=== PATIENT | female | born 1960 | race Caucasian/White ===

== ENCOUNTER → 2024-08-17 14:34 | Outpatient (REF) | payer MEDICARE, OTHER, SELFPAY | LOC: WDC 14:34 | PROVIDERS: ATTENDING PHYSICIAN Family Medicine | DX: Z12.31 Encounter for screening mammogram for malignant neoplasm of breast (principal); Z78.0 Asymptomatic menopausal state | CPT/HCPCS: 77063; 77067; 77080 ==

== ENCOUNTER → 2024-09-08 10:42 | Outpatient (REF) | payer MEDICARE, OTHER, SELFPAY | LOC: HWRAD 10:42 | DX: J18.9 Pneumonia, unspecified organism (principal) | CPT/HCPCS: 71046 ==

== ENCOUNTER 2024-09-09 16:14 | Inpatient (IN) | payer MEDICARE, OTHER, SELFPAY ==
[2024-09-09 13:13] VITALS: BP 162/88
[2024-09-09 13:49] LABS: ALT (SGPT) 278 U/L (0-35); AST (SGOT) 237 U/L (14-36); Albumin 3.9 g/dl (3.5-5.0); Alkaline Phosphatase 21 U/L (38-126); Blood Urea Nitrogen 13 mg/dl (7-17); Calcium 9.2 mg/dl (8.4-10.2); Carbon Dioxide 32 mmol/L (22-30); Chloride 102 mmol/L (98-107); Glucose 112 mg/dl (70-99); Potassium 4.1 mmol/L (3.5-5.1); Sodium 138 mmol/L (135-145); Total Bilirubin 0.4 mg/dl (0.2-1.3); Total Protein 6.7 g/dl (6.3-8.2); eGFR > 60.00
--- NOTE | 2024-09-09 13:59 | ED.GENMED ---
History of Present Illness
General
Chief Complaint: Pneumonia Symptoms
Time Seen by Provider: 09/09/24 13:59
History of Present Illness
History of Present Illness:
TIME OF INITIAL ENCOUNTER: 2 PM
HPI: 5 days ago, the patient started having a low-grade fever and then the following day 'it felt like I was hit by a ton of bricks'. She has not felt well since that time. She was diagnosed with pneumonia yesterday and started Levaquin.
EXAM:
GENERAL: Appears generally weak
HEENT: Moist oral mucosa
CARDIOVASCULAR: No murmurs, normal heart rate, regular rhythm, No chest wall tenderness
PULMONARY: No respiratory distress, breath sounds are clear on the right but has significant rales and rhonchi on the left
ABDOMEN: Soft with no peritoneal signs, no tenderness
NEUROLOGIC: Good strength all extremities, no coordination deficits
PSYCHIATRIC: Appropriate mental status, normal insight and judgement
EXTREMITIES: Nontender, no edema, moves all extremities equally
SKIN: No rash, no lesions
NUMBER AND COMPLEXITY OF PROBLEMS ADDRESSED AT THE ENCOUNTER
� Chronic conditions affecting care: Melanoma
� Acute Exacerbation and/or Progression of Chronic Illness: This is an acute problem
� Differential Diagnosis includes: Pneumonia failing outpatient management, dehydration, WILFREDO,
AMOUNT AND/OR COMPLEXITY OF DATA TO BE REVIEWED AND ANALYZED
� I performed an independent evaluation of and my interpretation is:
EKG:
CT:
X-rays: Chest x-ray personally reviewed groundglass lesions on the left lung appear to be slightly improved
Laboratory Studies: White count 4.7, hemoglobin normal, chemistries unremarkable however the transaminases are elevated in the 200s
Other:
� Review of other/old records: X-ray from yesterday suggested multifocal pneumonia on the left
� Clinical information was obtained by an independent historian: I spoke does not at bedside
� Prescriptions/Medications Considered but not given:
� Further testing considered but not performed:
RISK OF COMPLICATIONS AND/OR MORBIDITY OR MORTALITY OF PATIENT MANAGEMENT
� Social determinants of health affecting care: Lives at home
� Discussion with other providers: Hospitalist for admission
� Escalation of care including admission/observation vs risk of discharge considered: Despite 2 days of Levaquin, she continues to feel worse. She has general unwell feeling but does not describe much of a shortness of breath
kind of standpoint. I offered to consider albuterol however the patient declines. I have placed her on IV antibiotics.
ANY OTHER UPDATES:
Phy Exam
Physical Exam
Physical Exam:
See HPI
Course
Orders/Labs/Results
Orders:
Orders
09/09/24 13:27
CMP [Comprehensive Metabolic Panel] Urgent
Complete Blood Count/With Diff Urgent
Creatine Phosphokinase Urgent
Comment: ADD ON
Manual Differential Urgent
09/09/24 14:00
CR Chest - 2 Views Urgent
Comment:
Reason For Exam: pneumonia symptoms
09/09/24 14:38
0.9% Sodium Chloride 1000 ml [Nss] 1,000 ml IV BOLUS
Azithromycin 500 mg/250 ml [Zithromax Infusion] 500 mg in 250 ml IV NOW
CefTRIAXone [Rocephin] 1,000 mg IV NOW STA
09/09/24 14:45
Add On- LAB Urgent
Tests Added?: ck
09/09/24 14:46
Lactic Acid Q4H
Comment: CANCEL 2nd LACTIC ACID IF 1st LACTIC ACID IS LESS THAN 2
Blood Culture Q30M
KASSY Source: Blood/Venous
Specimen Description:
Blood Culture Q30M
KASSY Source: Blood/Venous
Specimen Description:
Influenza A+B Rapid Molecular Urgent
KASSY Source: Nasal Swab
Specimen Description:
09/09/24 15:11
Admit/Transfer Patient As Directed
Co-Sign Provider:
Level of Care: Inpatient admission
Assign to:: Medical/Surgical
Physician / Group: yesi
Diagnosis: pneumonia
Reason for Hospitalization: pneumonia
Expected length of stay greater than two midnights?: Yes
ELOS- Estimated Length of Stay in days: 2
I certify the patient meets the requirements for IP care: Yes
Code Status As Directed
Resuscitation Status: Full Code
PRN Pain Medication Management As Directed
May give lesser potent ordered pain med per pt: Yes
preference::
Protocol:: Medication orders for pain may be administered in a
manner that supports deferring to patient preference
when the pt is:
- Requesting an ordered lesser potent pain medication.
Least to most potent pain medications are defined
as: acetaminophen < NSAID < tramadol < opioids
(morphine, oxycodone, hydromorphone).
- Requesting a lesser dose of the same medication IF
ORDERED.
- Requesting a less intrusive route of administration
if both routes are prescribed by the provider (PO <
IV).
09/09/24 15:13
Legionella Urinary Antigen Urgent
KASSY Source: Urine
Specimen Description:
Respiratory Culture/Gram Stain Urgent
KASSY Source: Sputum
Specimen Description:
Strep pneumoniae Antigen Urgent
KASSY Source: Urine
Specimen Description:
09/09/24 15:45
Ondansetron Injectable [Zofran] 4 mg IV Q6HPRN PRN
Abnormal Lab Results
09/09/24
13:27
WBC 4.7 L 10^3/uL
(4.8-10.8)
MCH 31.6 H pg
(27.0-31.0)
Carbon Dioxide 32 H mmol/L
(22-30)
Creatinine 0.5 L mg/dL
(0.6-1.0)
Glucose 112 H mg/dl
(70-99)
AST 237 H U/L
(14-36)
ALT 278 H U/L
(0-35)
Alkaline Phosphatase 21 L U/L
(38-126)
09/09/24 13:27
09/09/24 13:27
Vital Signs
Initial and Last Documented VS:
Initial Vital Signs
Temp Pulse Resp BP Pulse Ox
37.1 C 101 18 162/88 94
09/09/24 13:13 09/09/24 13:13 09/09/24 13:13 09/09/24 13:13 09/09/24 13:13
Last Documented Vital Signs
Temp Pulse Resp BP Pulse Ox
37.1 C 84 18 162/88 94
09/09/24 13:13 09/09/24 18:04 09/09/24 18:04 09/09/24 13:13 09/09/24 18:04
*Critical Care Note
Total Time (30-74mins, 75-104mins- exclusive of procedures): Not Applicable
ED Attending Note
-
Portions of this chart may have been created with voice recognition software.� Occasional wrong word or��sound alike� substitutions may have occurred due to the inherent limitations of voice recognition software.
Discharge Plan
Departure
Patient Disposition: Admit
Date of Disposition: 09/09/24
Time of Disposition: 14:40
Presentation/result/management discussed w/ accepting MD/DO: Hospitalist
Discharge Problem:
Pneumonia
Interventions
Interventions:
*Risk Screen - Suicide Last Done: 09/09/24 13:13
*General Assessment Last Done: 09/09/24 13:13
ED- Cardiac Assessment Last Done: 09/09/24 14:30
ED- Pulmonary Assessment Last Done: 09/09/24 14:30
[2024-09-09 14:15] LABS: Hematocrit 40.4 % (37.0-47.0); Hemoglobin 14.3 g/dL (12.0-16.0); Mean Corp Hgb Conc. 35.4 g/dL (33.0-37.0); Mean Corpuscular Hgb 31.6 pg (27.0-31.0); Mean Corpuscular Volume 89.2 fL (81.0-99.0); Mean Platelet Volume 9.6 fL (7.4-10.4); Platelet Count 300 10^3/uL (130-400); Red Blood Cell Count 4.53 10^6/uL (4.20-5.40); White Blood Cell Count 4.7 10^3/uL (4.8-10.8)
[2024-09-09 14:44] LABS: Absolute Neutrophils -Man Diff 2.1 10^3/uL (1.4-6.5); Band Neutrophils 1 % (0-3); Lymphocytes 43 % (20-51); Monocytes 7 % (2-9); Plasmacytoid Lymphocytes 4 %; Segmented Neutrophils 45 % (42-75)
[2024-09-09 14:45] LABS: Normal RBC Morphology Yes; Platelets Checked Yes; Total Cells Counted 100
[2024-09-09] MEDS: NSS 1000 IV ×2 (14:50→21:20)
[2024-09-09] MEDS: ZITHROMAX INFUSION 250 IV (15:02)
[2024-09-09] MEDS: ROCEPHIN 1000 MG IV (15:02)
[2024-09-09 15:14] LABS: Lactic Acid 0.9 mmol/L (0.7-2.0)
--- NOTE | 2024-09-09 15:14 | HPS.HSE ---
Family Physician
-
Family Physician: Jackie Harvey DO
Chief Complaint
-
fever
History of Present Illness
63-year-old female without past medical history of presenting with low-grade fever and bodyaches for the past 5 days. She initially had minimal cough. She saw her primary care physician 2 days ago and had an chest x-ray which showed pneumonia.
She was started on Levaquin. She continues to have worsening fever, slightly productive cough. No chest pain. No shortness of breath. She has also had vomiting since yesterday, abdominal wall soreness, and diarrhea few times but no diarrhea
today. She has eaten very little.
No recent travel history.
She drinks alcohol socially. No smoking history.
Medical History
Past Medical History
Past Medical History: Reports None
Past Surgical History: Reports Tonsilectomy ( Bilateral ovary resection, melanoma resection, orthopedic surgery of feet,)
Social History
Tobacco: Non-smoker
Alcohol: Occasional
Drug: None
Family History
Family History: Not pertinent
Allergies / Home Medications
Allergies reflects when Allergies were last updated in [employer].
Home Medications with original date entered in [employer]
Allergy/Medication List:
Allergies
Allergy/AdvReac Type Severity Reaction Status Date / Time
No Known Allergies Allergy Verified 09/09/24 13:17
Home Medications
acetaminophen 500 mg tablet (Tylenol Extra Strength) 1,000 mg PO Q4HPRN PRN fever 12/14/20
ascorbic acid (vitamin C) 500 mg tablet (Vitamin C) 500 mg PO DAILY 09/09/24
cholecalciferol (vitamin D3) 25 mcg (1,000 unit) tablet (Vitamin D3) 25 mcg PO DAILY 09/09/24
guaifenesin 600 mg tablet, extended release 12 hr (Mucinex) 600 mg PO BIDPRN PRN cough 09/09/24
levofloxacin 750 mg tablet 750 mg PO DAILY 09/09/24
zinc sulfate 50 mg zinc (220 mg) capsule 50 mg PO DAILY 09/09/24
Review of Systems
-
Constitutional: Reports See HPI
EENT: Reports No Symptoms
Respiratory: Reports See HPI
Cardiac: Reports No Symptoms
Abdomen/GI: Reports No Symptoms
: Reports No Symptoms
Musculoskeletal: Reports No Symptoms
Skin: Reports No Symptoms
Neurological: Reports No Symptoms
Endocrine: Reports No Symptoms
Hematologic/Lymphatic: Reports No Symptoms
Psych: Reports No Symptoms
Physical Exam
Vital Signs
Vital Signs
Temp Pulse Resp BP Pulse Ox
98.7 F 101 18 162/88 94
09/09/24 13:13 09/09/24 13:13 09/09/24 13:13 09/09/24 13:13 09/09/24 13:13
Physical Exam
General: Well Developed, Well Nourished and No Apparent Distress
HEENT: NormoCephalic, Moist mucous membranes and Atraumatic
Respiratory: Clear
Cardiac: S1/S2 and Regular Rhythm; No Murmur or Rub
GI: Soft, Non Tender, Non Distended and Normal Bowel Sounds; No Organomegaly
Rectal: Deferred by Provider
Musculoskeletal: No Clubbing, No Cyanosis and No Edema
Skin: No Rash
Neuro: Nonfocal/grossly intact
Laboratory Results
-
09/09/24 13:27
09/09/24 13:27
Laboratory Results
Lactic Acid 0.9 mmol/L (0.7-2.0) 09/09/24 14:46
Total Bilirubin 0.4 mg/dl (0.2-1.3) 09/09/24 13:27
AST 237 U/L (14-36) H 09/09/24 13:27
ALT 278 U/L (0-35) H 09/09/24 13:27
Alkaline Phosphatase 21 U/L (38-126) L 09/09/24 13:27
Data Reviewed
-
Lab Data: Labs Reviewed by me
Old Records: Reviewed
Impression/Plan
-
IMPRESSION:
PLAN:
# Sepsis (tachycardia, leukopenia) secondary to community acquired pneumonia
-Chest x-ray shows subtle predominantly groundglass opacities within the peripheral aspect of the left lung suspicious for pneumonia unchanged to slightly improved compared to the study from yesterday
-COVID and flu pending
-Check sputum culture, strep antigen and Legionella
-Blood cultures plan
- IV fluids
- Ceftriaxone/azithromycin
- Zofran for nausea
Full code
DVT prophylaxis�heparin
Regular diet
[2024-09-09 15:50] LABS: Creatine Phosphokinase 69 U/L (30-135)
[2024-09-09] MEDS: ZOFRAN 4 MG IV (15:56)
[2024-09-09 18:54] LABS: COVID-19 Antigen Negative (Negative)
[2024-09-09 20:37] VITALS: BP 137/81
[2024-09-09 23:49] VITALS: BP 127/96
[2024-09-09 23:57] VITALS: BMI 28.7
[2024-09-10] MEDS: TYLENOL 1000 MG PO ×4 (00:19→22:53)
[2024-09-10 08:08] VITALS: BP 149/84
[2024-09-10] MEDS: VITAMIN C 500 MG PO (08:54)
[2024-09-10] MEDS: VITAMIN D3 (cholecalciferol) 25 MCG PO (08:55)
[2024-09-10] MEDS: ZINC 50 MG PO (08:55)
[2024-09-10 09:04] LABS: Hematocrit 35.8 % (37.0-47.0); Hemoglobin 12.2 g/dL (12.0-16.0); Mean Corp Hgb Conc. 34.1 g/dL (33.0-37.0); Mean Corpuscular Hgb 31.6 pg (27.0-31.0); Mean Corpuscular Volume 92.7 fL (81.0-99.0); Mean Platelet Volume 9.8 fL (7.4-10.4); Platelet Count 302 10^3/uL (130-400); Red Blood Cell Count 3.86 10^6/uL (4.20-5.40); Red Cell Dist. Width 12.1 % (11.5-14.5); White Blood Cell Count 5.3 10^3/uL (4.8-10.8)
--- NOTE | 2024-09-10 09:06 | W.PN.HOSP.TC ---
Today's Communication/Plan
-
cont abx/IVFs, likey d/c tomorrow if further clinical improvement.
Assessment / Plan
Assessment / Plan
Gen: NAD, AAOx3.
Eyes: EOMI, PERRLA, no scleral icterus.
Neck: supple.
CV: RRR, +S1/S2, no m/r/g.
Resp: CTAB, no rales, wheezes, or rhonchi.
Abd: +BS, soft, NT, ND
Skin: No rashes.
Neuro: CN 2-12 intact, non-focal.
Psych: Normal mood and affect.
09/09/24 14:46 Nasal Swab Influenza Types A & B (BENNY) - Final
Negative for Influenza A & B, NAAT
Negative results must be combined with clinical observations
and patient history.
Nucleic Acid Amplification test (NAAT)performed on the
[employer] NOW platform.
CXR 09/08/24: Ill-defined ground glass opacities within the left lung suspicious for multifocal pneumonia. Follow-up radiographs recommended to ensure resolution following a course of therapy.
CXR 09/09/24: Again seen are subtle predominantly groundglass opacities within the peripheral aspect of the left lung suspicious for pneumonia, unchanged to slightly improved compared to the study from yesterday. No new areas of airspace opacity. No
pleural effusions.
Sepsis due to L-sided PNA:
-COVID/Flu NEG
-CXR above
-afebrile, no leukocytosis, saturating well on RA
-cont Azithro/Rocephin
-follow BCxs
-cont IVFs
FULL/heparin
Anticipated Discharge: Within 24 hours
Subjective/Interval History
-
Date of Service: September 10, 2024
Pt states she feels her strength is improving. Overall she feels clinically improved from yesterday.
Objective Data
-
Labs:
Laboratory Results
09/10/24
08:28
WBC 5.3
Hgb 12.2
Hct 35.8 L
Plt Count 302
Sodium Pending
Potassium Pending
Chloride Pending
Carbon Dioxide Pending
BUN Pending
Creatinine Pending
Glucose Pending
Calcium Pending
Total Bilirubin Pending
AST Pending
ALT Pending
Alkaline Phosphatase Pending
Vital Signs:
Vital Signs
Temp Pulse Resp BP Pulse Ox
98.1 F 96 16 149/84 96
09/10/24 08:08 09/10/24 08:08 09/10/24 08:08 09/10/24 08:08 09/10/24 08:08
[2024-09-10 09:17] LABS: % Basophils 0.2 % (0-2); % Eosinophils 0.7 % (0-6); % Immature Granulocytes 0.4 % (0-0.5); % Lymphocytes 38.4 % (20.5-51.1); % Monocytes 8.4 % (1.7-9.3); % Neutrophils 51.9 % (42.2-75.2); Absolute Lymphocytes 2.1 10^3/uL (1.2-3.4); Absolute Monocytes 0.5 10^3/uL (0.1-0.6); Absolute Neutrophils 2.8 10^3/uL (1.4-6.5); Nucleated Red Blood Cells % 0 %
[2024-09-10 09:35] LABS: ALT (SGPT) 218 U/L (0-35); AST (SGOT) 141 U/L (14-36); Albumin 3.4 g/dl (3.5-5.0); Alkaline Phosphatase 22 U/L (38-126); Blood Urea Nitrogen 10 mg/dl (7-17); Calcium 8.8 mg/dl (8.4-10.2); Carbon Dioxide 29 mmol/L (22-30); Chloride 106 mmol/L (98-107); Estimated Creatinine Clearance 93 ml/min; Glucose 124 mg/dl (70-99); Potassium 4.4 mmol/L (3.5-5.1); Sodium 139 mmol/L (135-145); Total Bilirubin 0.4 mg/dl (0.2-1.3); Total Protein 5.9 g/dl (6.3-8.2); eGFR > 60.00
--- NOTE | 2024-09-10 10:08 | CM ---
Initial assessment completed. Patient is a 63-year-old female without past medical history of presenting with low-grade fever and bodyaches.
Patient resides w/ spouse and adult daughter in a 2ST[facility]- no steps. Independent w/ ambulating and ADLs, no DME identified. 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
No SNF/HC hx reported.
Address, point of contact and insurance verified
PCP: Jackie Harvey
Pharmacy: [facility]
Plan: Home, no needs when stable
[2024-09-10] MEDS: STERILE WATER FOR INJECTION 10 ML IV (16:13)
[2024-09-10] MEDS: ZITHROMAX INFUSION 250 IV (16:13)
[2024-09-10 16:14] VITALS: BP 136/76
[2024-09-10] MEDS: ROCEPHIN 1000 MG IV (16:14)
[2024-09-10] MEDS: NSS 1000 IV (16:20)
[2024-09-10] MEDS: ZOFRAN 4 MG IV (17:01)
[2024-09-10 23:18] VITALS: BP 140/78
[2024-09-11] MEDS: NSS 1000 IV (05:06)
[2024-09-11 07:30] VITALS: BP 134/84
[2024-09-11] MEDS: VITAMIN D3 (cholecalciferol) 25 MCG PO (07:38)
[2024-09-11] MEDS: VITAMIN C 500 MG PO (07:38)
[2024-09-11] MEDS: ZINC 50 MG PO (07:38)
[2024-09-11] MEDS: TYLENOL 1000 MG PO (07:43)
[2024-09-11] MEDS: NSS IV (07:45)
--- NOTE | 2024-09-11 12:39 | W.PN.HOSP.TC ---
Today's Communication/Plan
-
dc to home today
Assessment / Plan
Assessment / Plan
Assessment
Sepsis due to L-sided PNA (community acquired):
-COVID/Flu NEG
-CXR:left lung suspicious for pneumonia
-afebrile, no leukocytosis, saturating well on RA
-cont Azithro x 5 days, Cefdinir total 10 days
-PCP and Repeat CXR in 4-6 weeks (patient has script from her recent office visit)
DVT ppx: SC Heparin
Code: Full
More than 30 minutes spent in discharge including
Final examination of the patient
Summarizing hospital stay
Instructions for continuing care to all relevant caregivers
Preparation of discharge records, prescriptions, and referral forms
Total time spent (in minutes): 41
Anticipated Discharge: Today
Subjective/Interval History
-
Date of Service: September 11, 2024
mild cough
no cp or sob
Objective Data
-
Vital Signs:
Vital Signs
Temp Pulse Resp BP Pulse Ox
98.6 F 87 18 134/84 96
09/11/24 07:30 09/11/24 07:30 09/11/24 07:30 09/11/24 07:30 09/11/24 07:30
I&O
09/10/24 09/11/24 09/12/24
06:59 06:59 06:59
Intake Total 1440 / 1440
Balance 1440 / 1440
Physical Exam
-
General: No Apparent Distress
HEENT: Normocephalic and Atraumatic
Respiratory: Rhonchi (GISELLA); Negative Wheezes
Cardiac: Regular Rhythm and S1/S2
GI: Soft and Nontender
Musculoskeletal: No Edema
Neuro: AO x 3
Psych: Calm
Data Reviewed
-
Total Time Spent with Patient (in minutes): 42
Labs: Labs Reviewed by me
--- NOTE | 2024-09-11 12:49 | W.DS.TRANS ---
DC Summary - Qa Manager
-
Discharge Instructions:
Discharge Diagnosis/Procedures community acquired pneumonia
Diet Regular
Activity As tolerated
Instructions:
Stand-Alone Forms:
Changes to Home Medications: No
Discharge Medications:
DC Medications w/original date entered in [employer]
acetaminophen 500 mg tablet (Tylenol Extra Strength) 1,000 mg PO Q4HPRN PRN fever 12/14/20
ascorbic acid (vitamin C) 500 mg tablet (Vitamin C) 500 mg PO DAILY Supplement 09/09/24
cholecalciferol (vitamin D3) 25 mcg (1,000 unit) tablet (Vitamin D3) 25 mcg PO DAILY Supplement 09/09/24
guaifenesin 600 mg tablet, extended release 12 hr (Mucinex) 600 mg PO BIDPRN PRN cough 09/09/24
zinc sulfate 50 mg zinc (220 mg) capsule 50 mg PO DAILY Supplement 09/09/24
azithromycin 250 mg tablet 250 mg PO DAILY 3 days #3 tabs 09/11/24
cefdinir 300 mg capsule 300 mg PO BID #16 caps 09/11/24
Home Medication Changes
Pending Results: No
Total time spent discharging patient (in min): 41
--- NOTE | 2024-09-11 12:56 | CM ---
Chart reviewed home no needs
Plan; Discharge today home no needs.
== END 2024-09-11 13:30 | disposition home or self-care (01) | DRG 871 ==
LOC: 4 EAST ACU 16:14
PROVIDERS: Emergency Medicine; ADMITTING PHYSICIAN Hospitalist; ATTENDING PHYSICIAN Internal Medicine; EMERGENCY PHYSICIAN Emergency Medicine; FAMILY PHYSICIAN Internal Medicine
DX: A41.89 Other specified sepsis (principal); J18.9 Pneumonia, unspecified organism; Z11.52 Encounter for screening for COVID-19
CPT/HCPCS: 71046; 80053; 82550; 83605; 85025; 87040; 87502; 87811; 96361; 96374; 96375; 99284

== ENCOUNTER → 2024-11-17 16:26 | Outpatient (REF) | payer MEDICARE, OTHER, SELFPAY | LOC: HWRAD 16:26 | PROVIDERS: FAMILY PHYSICIAN Internal Medicine; REFERRING PHYSICIAN Specialist | DX: J18.9 Pneumonia, unspecified organism (principal); M25.551 Pain in right hip | CPT/HCPCS: 71046; 73523 ==

== ENCOUNTER → 2024-12-06 15:00 | Outpatient (REF) | payer MEDICARE, OTHER, SELFPAY | LOC: HWRCS 15:00 | PROVIDERS: ATTENDING PHYSICIAN Internal Medicine Interventional Cardiology; FAMILY PHYSICIAN Family Medicine | DX: R00.0 Tachycardia, unspecified (principal) | CPT/HCPCS: 93306 ==